=== PATIENT | female | born 1980 | race Two or more races ===

== ENCOUNTER 2018-06-21 11:21 | Emergency (ER) | payer BC ==
[~2018-06-21] VITALS: Ht 172.7 cm; Wt 56.7 kg
[2018-06-21 11:21] VITALS: BP 119/74
--- NOTE | 2018-06-21 11:37 | NUR ---
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
== END 2018-06-21 11:51 | disposition home or self-care (01) ==
LOC: ER 11:22
DX: S29.8XXA Other specified injuries of thorax, initial encounter (principal); V49.49XA Driver injured in collision with other motor vehicles in traffic accident, initial encounter; Y93.89 Activity, other specified; Y92.413 State road as the place of occurrence of the external cause; Y99.8 Other external cause status
CPT/HCPCS: 99283; A4606